=== PATIENT | female | born 1955 | race Caucasian/White ===

== ENCOUNTER 2018-10-14 12:20 | Observation (INO) ==
[2018-10-14 12:24] VITALS: BMI 24.8
--- NOTE | 2018-10-14 13:02 | DR.GIBLEED ---
HPI Time Seen Time Seen by Provider: 10/14/18 12:36 Primary Care Physician Primary Care Physician: CA KHAN Complaints Chief Complaint Doctors Comments: Patient states that she had an episode of vomiting this AM early. Later she had BM x 3 small stools. Later this AM ~1000 she had bright red blood per rectum. She had a colonoscopy recently, rescheduled for 7 years. Previous surgery (November)consisting of hysterectomy, pelvic reconstruction (Dr. Edge; [place]) Admits to occasional smoking. Chief Complaint:: PATIENT WOKE UP SICK THIS MORNING AND FAINTY. SHE STATED THAT WHEN SHE USED THE RESTROOM THERE WAS BRIGHT RED BLOOD. PATIENT STATED THAT THIS HAS NEVER HAPPENED BEFORE. Source History Provided: Patient Mode of Arrival Mode of Arrival: Ambulatory Timing Onset of Chief Complaint: 10/14/18 PMH PMH Past Medical History: Yes Past Medical History: Dyslipidemia, Migraines, GERD and Headaches Past Surgical History: Yes Surgical History: CHARGER Surgery, Hysterectomy and Other Past Surgical History Comment: PELVIC RECONSTRUCTION SURGERY Family History History of Family Medical Conditions: Yes Family Medical History: Hypertension Social History Does patient currently use any type of tobacco product: No Have you used tobacco products in the last 12 months: No Type of Tobacco Use: None Does any household member use tobacco: No Do you use any recreational Drugs:: No infectious screening In the last 2 months have you had wt loss of >10#?: NO Have you had fever, night sweats or hemotysis?: No Have you traveled outside the country in the last 6 months?: No Isolation: Standard ROS Review of Systems Constitutional: No Symptoms Reported ENTM: No Symptoms Reported Respiratoy: No Symptoms Reported Cardiovascular: No Symptoms Reported Gastrointestinal/Abdominal: See HPI Genitourinary: No Symptoms Reported Neurological: No Symptoms Reported Musculoskeletal: No Symptoms Reported Hematologic/Lymphatic: No Symptoms Reported Endocrine: No Symptoms Reported Psychiatric: No Symptoms Reported All Other Systems: Reviewed and Negative PE Vital Signs Vitals: Temperature 98.2 F Pulse Rate 97 Respiratory Rate 20 Blood Pressure [Left Arm] 124/79 Blood Pressure 116/66 O2 Sat by Pulse Oximetry 98 General Limitations: No Limitations General Appearance: Alert, In No Apparent Distress and Anxious Head Head Exam: Normal Inspection, Atraumatic and Normocephalic Eyes Eye exam: Normal Appearance, PERRL and EOMI ENT ENT Exam: Normal Exam, Normal Oropharynx and Normal External Ear Exam Neck Neck Exam: Normal Inspection and Full ROM Chest Chest Inspection: Normal Inspection and Symmetric Chest Wall Rise Respiratory Respiratory Exam: Normal Lung Sounds Bilat Respiratory Exam: Bilateral: Clear to Auscultation Cardiovascular Cardiovascular Exam: Normal Rhythm Abdominal Exam Abdominal Exam: Normal Inspection, Normal Bowel Sounds, Soft and Hypoactive Bowel Sounds Rectal Rectal Exam: Normal Inspection Extremities Extremities Exam: Normal Inspection Back Back Exam: Normal Inspection Neurologic Neurological Exam: Alert, Oriented X3 and CN II-XII Intact Psychiatric Psychiatric Exam: Normal Affect and Normal Mood Skin Skin Exam: Warm, Dry and Intact DIFFERENTIAL DIAGNOSIS Differential Diagnosis Differential Diagnosis: Bleeding diathesis, Esophageal varicies, Gastritis, Meckel's Diverticulum and Stress Ulcers COURSE Consultation Called: 13:19 Consultation Comments: Dr. Bell consulted concerning the admission for Ms. Lemons who has a GI bleed and colitis. He agreed to admit for further treatment [facility]OR Labs Reviewed Laboratory Results Reviewed?: Yes Result Diagrams: 10/14/18 13:12 10/14/18 13:12 Laboratory: WBC 13.5 X10^3/uL (3.6-10.0) H 10/14/18 13:12 RBC 4.89 X10^6/uL (3.5-5.4) 10/14/18 13:12 Hgb 15.6 g/dL (12.0-16.0) 10/14/18 13:12 Hct 46.2 % (36.0-47.0) 10/14/18 13:12 MCV 94.6 fL (80.0-100.0) 10/14/18 13:12 MCH 31.8 pg (27.0-34.0) 10/14/18 13:12 MCHC 33.7 g/dL (33.0-35.0) 10/14/18 13:12 RDW 13.0 % (11.6-16.5) 10/14/18 13:12 Plt Count 330 X10^3/uL (150.0-450.0) 10/14/18 13:12 MPV 8.4 fL (7.4-11.0) 10/14/18 13:12 Neut % (Auto) 85.6 % (42.0-75.0) H 10/14/18 13:12 Lymph % (Auto) 9.6 % (21.0-51.0) L 10/14/18 13:12 [place] % (Auto) 4.3 % (0.0-13.0) 10/14/18 13:12 Eos % (Auto) 0.2 % (0.9-2.9) L 10/14/18 13:12 Baso % (Auto) 0.3 % (0.2-1.0) 10/14/18 13:12 Neut # (Auto) 11.6 x10^3/uL (2.2-4.8) H 10/14/18 13:12 Lymph # (Auto) 1.3 X10^3/uL (1.3-2.9) 10/14/18 13:12 [place] # (Auto) 0.6 x10^3/uL (0.3-0.8) 10/14/18 13:12 Eos # (Auto) 0.0 x10^3/uL (0.0-0.2) 10/14/18 13:12 Baso # (Auto) 0.0 X10^3/uL (0.0-0.1) 10/14/18 13:12 Absolute Nucleated RBC 0.0 /100WBC 10/14/18 13:12 INR Target Range - 10/14/18 13:12 INR 0.93 (0.8-1.3) 10/14/18 13:12 APTT 29.5 SECONDS (22.9-36.5) 10/14/18 13:12 PTT Comment - 10/14/18 13:12 Sodium 141 mmol/L (136-145) 10/14/18 13:12 Corrected Sodium 141 mmol/L (136-145) 10/14/18 13:12 Potassium 3.9 mmol/L (3.5-5.1) 10/14/18 13:12 Chloride 104 mmol/L (98-107) 10/14/18 13:12 Carbon Dioxide 29.4 mmol/L (21-32) 10/14/18 13:12 BUN 9 mg/dL (7-18) 10/14/18 13:12 Creatinine 0.79 mg/dL (0.55-1.02) 10/14/18 13:12 Est GFR (MDRD) Af Amer > 60 (>60) 10/14/18 13:12 Est GFR (MDRD) Non-Af > 60 (>60) 10/14/18 13:12 Glucose 113 mg/dL (65-99) H 10/14/18 13:12 Calcium 9.5 mg/dL (8.5-10.1) 10/14/18 13:12 Corrected Calcium TNP 10/14/18 13:12 Total Bilirubin 0.50 mg/dL (0.2-1.0) 10/14/18 13:12 AST 19 Units/L (15-37) 10/14/18 13:12 ALT 20 Units/L (12-78) 10/14/18 13:12 Alkaline Phosphatase 76 Units/L (46-116) 10/14/18 13:12 Total Protein 7.4 g/dL (6.4-8.2) 10/14/18 13:12 Albumin 3.8 g/dL (3.4-5.0) 10/14/18 13:12 Globulin 3.6 g/dL (2.5-4.5) 10/14/18 13:12 Albumin/Globulin Ratio 1.1 Ratio (1.1-2.1) 10/14/18 13:12 Stool Description 10g,brown,unformed 10/14/18 13:30 Stl Occult Blood (IFOB) Positive (NEGATIVE) A 10/14/18 13:30 Stool for White Cells Positive (NEGATIVE) A 10/14/18 13:30 ADDITIONAL NOTES Additional Notes Additional Notes: Admitted to the service of Dr. Bell for GI Bleed
[2018-10-14 13:20] LABS: BASOPHILS % (AUTO) 0.3 % (0.2-1.0); EOSINOPHILS % (AUTO) 0.2 % (0.9-2.9); HEMATOCRIT 46.2 % (36.0-47.0); HEMOGLOBIN 15.6 g/dL (12.0-16.0); LYMPHOCYTES # (AUTO) 1.3 X10^3/uL (1.3-2.9); LYMPHOCYTES % (AUTO) 9.6 % (21.0-51.0); MEAN CORPUSCULAR HEMOGLOBIN 31.8 pg (27.0-34.0); MEAN CORPUSCULAR HGB CONC 33.7 g/dL (33.0-35.0); MEAN CORPUSCULAR VOLUME 94.6 fL (80.0-100.0); MEAN PLATELET VOLUME 8.4 fL (7.4-11.0); MONOCYTES # (AUTO) 0.6 x10^3/uL (0.3-0.8); MONOCYTES % (AUTO) 4.3 % (0.0-13.0); NEUTROPHILS # (AUTO) 11.6 x10^3/uL (2.2-4.8); NEUTROPHILS % (AUTO) 85.6 % (42.0-75.0); PLATELET COUNT 330 X10^3/uL (150.0-450.0); RED BLOOD COUNT 4.89 X10^6/uL (3.5-5.4); WHITE BLOOD COUNT 13.5 X10^3/uL (3.6-10.0)
[2018-10-14 13:28] LABS: ALANINE AMINOTRANSFERASE 20 Units/L (12-78); ALBUMIN 3.8 g/dL (3.4-5.0); ALKALINE PHOSPHATASE 76 Units/L (46-116); ASPARTATE AMINO TRANSFERASE 19 Units/L (15-37); BLOOD UREA NITROGEN 9 mg/dL (7-18); CALCIUM 9.5 mg/dL (8.5-10.1); CARBON DIOXIDE 29.4 mmol/L (21-32); CHLORIDE 104 mmol/L (98-107); COR NA(FOR HYPERGLY) 141 mmol/L (136-145); CREATININE 0.79 mg/dL (0.55-1.02); SODIUM 141 mmol/L (136-145); TOTAL PROTEIN 7.4 g/dL (6.4-8.2); eGFR NON BLACK RACES > 60 (>60)
[2018-10-14 13:57] LABS: STOOL FOR WBC POSITIVE (NEGATIVE)
[2018-10-14] MEDS ORDERED: NS 1000 ML 1,000 ML ONE (15:35)
[2018-10-14] MEDS: NS 1000 ML 1,000 ML IV SCH (15:44)
[2018-10-14] MEDS: FLAGYL IV PREMIX 500 MG BAG 500 MG/100 ML BAG IV SCH ×2 (15:57→20:19)
[2018-10-14] MEDS ORDERED: FLAGYL IV PREMIX 500 MG BAG 500 MG/100 ML BAG IV ONE (15:57)
[2018-10-14 17:15] LABS: BILIRUBIN,URINE NEGATIVE (NEGATIVE); BLOOD/HEMOGLOBIN,URINE NEGATIVE (NEGATIVE); GLUCOSE, URINE NEGATIVE (NEGATIVE); KETONES,URINE NEGATIVE (NEGATIVE); LEUKOCYTE ESTERASE ,URINE 1+ (NEGATIVE); NITRITES,URINE POSITIVE (NEGATIVE); PROTEIN,URINE NEGATIVE (NEGATIVE); UROBILINOGEN,URINE NORMAL (NORMAL)
[2018-10-14 17:29] LABS: APPEARANCE,URINE SLIGHTLY HAZY (CLEAR); BACTERIA,URINE 3+ /HPF (NEGATIVE); COLOR,URINE YELLOW (YELLOW); RBC,URINE 0-2 /HPF (NONE SEEN); SQUAMOUS EPITHELIAL CELL,UR FEW /HPF (NEGATIVE)
[2018-10-14 17:44] LABS: HEMATOCRIT 42.8 % (36.0-47.0); HEMOGLOBIN 14.6 g/dL (12.0-16.0)
[2018-10-14 18:27] LABS: CKMB % 1.5 % (<4); CREATINE KINASE 65 Units/L (26-192); TROPONIN I < 0.02 ng/mL (0-1.5)
[2018-10-14] MEDS: CIPRO IV 400 MG PREMIX* 400 MG/200 ML IV.SOLN. IV SCH ×2 (18:35→20:18)
[2018-10-14] MEDS: PROTONIX INJ 40 MG VIAL IVP SCH (18:36)
[2018-10-14] MEDS: PEPCID 20 MG IV PREMIX* 20 MG/50 ML BAG IV SCH ×2 (18:36→20:19)
--- NOTE | 2018-10-14 19:20 | RAD ---
HISTORY: Abdominal pain Study: Single-view of the abdomen Comparison: April 25, 2018 Findings: Evaluation of the abdomen demonstrates a nonspecific bowel gas pattern. Scattered stool and gas are seen within the colon. Oval-shaped densities project over right mike abdomen may reflect non digested medications and/or foodstuffs. Correlate clinically. The upper abdomen is not entirely included. The renal shadows are partially obscured by overlying bowel content. IMPRESSION: 1. Overall nonspecific bowel gas pattern. Reported By:
[2018-10-14 21:04] LABS: CRYPTOSPORIDIUM PARVUM ANTIGEN NEGATIVE (NEGATIVE); GIARDIA LAMBLIA ANTIGEN NEGATIVE (NEGATIVE)
[2018-10-14 23:20] LABS: HEMATOCRIT 41.5 % (36.0-47.0)
[2018-10-15] MEDS: NS 1000 ML 1,000 ML IV SCH ×2 (02:40→06:11)
[2018-10-15] MEDS: FLAGYL IV PREMIX 500 MG BAG 500 MG/100 ML BAG IV SCH ×2 (02:40→08:27)
[2018-10-15 05:04] LABS: BASOPHILS # (AUTO) 0.1 X10^3/uL (0.0-0.1); BASOPHILS % (AUTO) 0.6 % (0.2-1.0); EOSINOPHILS # (AUTO) 0.2 x10^3/uL (0.0-0.2); EOSINOPHILS % (AUTO) 2.2 % (0.9-2.9); HEMATOCRIT 41.8 % (36.0-47.0); LYMPHOCYTES # (AUTO) 2.9 X10^3/uL (1.3-2.9); LYMPHOCYTES % (AUTO) 26.1 % (21.0-51.0); MEAN CORPUSCULAR HEMOGLOBIN 31.7 pg (27.0-34.0); MEAN CORPUSCULAR HGB CONC 33.4 g/dL (33.0-35.0); MEAN PLATELET VOLUME 9.3 fL (7.4-11.0); MONOCYTES # (AUTO) 0.7 x10^3/uL (0.3-0.8); MONOCYTES % (AUTO) 6.5 % (0.0-13.0); NEUTROPHILS # (AUTO) 7.1 x10^3/uL (2.2-4.8); NEUTROPHILS % (AUTO) 64.6 % (42.0-75.0); PLATELET COUNT 287 X10^3/uL (150.0-450.0); RED CELL DISTRIBUTION WIDTH 13.2 % (11.6-16.5); WHITE BLOOD COUNT 11.1 X10^3/uL (3.6-10.0)
[2018-10-15 05:10] LABS: ALANINE AMINOTRANSFERASE 17 Units/L (12-78); ALKALINE PHOSPHATASE 62 Units/L (46-116); ASPARTATE AMINO TRANSFERASE 15 Units/L (15-37); BLOOD UREA NITROGEN 8 mg/dL (7-18); CALCIUM 8.5 mg/dL (8.5-10.1); CHLORIDE 107 mmol/L (98-107); COR CA(FOR HYPOALB) 9.3 mg/dL (8.5-10.1); CREATININE 0.73 mg/dL (0.55-1.02); SODIUM 142 mmol/L (136-145); TOTAL PROTEIN 6.1 g/dL (6.4-8.2); eGFR NON BLACK RACES > 60 (>60)
--- NOTE | 2018-10-15 06:52 | RAD ---
HISTORY: GI bleeding Study: Chest AP portable Comparison: None Findings: The heart is within normal limits in size. The zan are normal. The lungs are free of acute alveolar infiltrates. No pleural effusions are identified. The bony thorax is unremarkable. IMPRESSION: No significant abnormality identified Reported By:
[2018-10-15] MEDS ORDERED: K-RIDER 10 MEQ/NS 100 ML 10 MEQ/100 ML BAG IV PRN (07:05)
[2018-10-15] MEDS ORDERED: MICRO K EXTEN CAP 10 MEQ PO PRN (07:05)
[2018-10-15] MEDS ORDERED: POTASSIUM CHLORIDE LIQ 20 MEQ UDC PO PRN (07:05)
[2018-10-15] MEDS ORDERED: POTASSIUM CHL 60 MEQ/NS 0.45% 500 ML IV PRN (07:05)
[2018-10-15] MEDS ORDERED: POTASSIUM CHL 40 MEQ/NS 0.45% 500 ML IV PRN (07:05)
[2018-10-15] MEDS ORDERED: K-DUR TAB 20 MEQ PO PRN (07:05)
[2018-10-15] MEDS ORDERED: KLOR-CON PO PRN (07:05)
[2018-10-15] MEDS: PEPCID 20 MG IV PREMIX* 20 MG/50 ML BAG IV SCH (08:27)
[2018-10-15] MEDS: CIPRO IV 400 MG PREMIX* 400 MG/200 ML IV.SOLN. IV SCH (08:27)
[2018-10-15] MEDS: PROTONIX INJ 40 MG VIAL IVP SCH (08:28)
[2018-10-15 12:08] VITALS: BP 122/54
== END 2018-10-15 13:10 | disposition home or self-care (01) ==
LOC: MED/SURG 12:20 → ER 12:20 → MED/SURG 16:02
PROVIDERS: ADMIT Internal Medicine; ATTEND Internal Medicine
DX: E87.6 Hypokalemia; B96.1 Klebsiella pneumoniae [K. pneumoniae] as the cause of diseases classified elsewhere; K92.2 Gastrointestinal hemorrhage, unspecified; N39.0 Urinary tract infection, site not specified
CPT/HCPCS: 36415; 71010; 71045; 74000; 74018; 80053; 81001; 82270; 82550; 82553; 83630; 83735; 84484; 85014; 85018; 85025; 85610; 85730; 87045; 87086; 87088; 87186; 87328; 87329; 87338; 87427; 87449; 87493; 87899; 93005; 94760; 96365; 96367; 96374; 99284; A4222; C9113; S0028; S0030; G0378; J0744; J7030